=== PATIENT | female | born 1990 | race Caucasian/White ===

== ENCOUNTER 2016-11-21 04:10 | Inpatient (IN) | payer MEDICAID ==
[~2016-11-21] VITALS: Ht 167.6 cm; Wt 111.8 kg
[2016-11-23 10:42] VITALS: BP 136/70
[2016-11-23] MEDS ORDERED: OXYTOCIN 30U/ 0.9% NaCL 500ML 500 ML IV ONE (11:30)
[2016-11-23] MEDS ORDERED: ONDANSETRON 2MG/ML, 2ML IVPush PRN (11:30)
[2016-11-23] MEDS ORDERED: FENTANYL PF 100 MCG/2ML IVPush PRN (11:30)
[2016-11-23] MEDS ORDERED: IBUPROFEN 200 MG TABLET PO PRN (11:30)
[2016-11-23] MEDS ORDERED: OXYcodone/APAP 5/325MG TABLET PO PRN ×2 (11:30)
[2016-11-23] MEDS ORDERED: MISOPROSTOL 200 MCG TABLET PR ONE (11:30)
[2016-11-23 12:18] LABS: HEMOGLOBIN 10.6 g/dL (11.7-16.4)
[2016-11-23] MEDS: LACTATED RINGERS 1,000 ML IV SCH ×2 (12:31→19:06)
[2016-11-23 12:32] LABS: ASPARTATE AMINO TRANSFERASE 18 U/L (15-37); BLOOD UREA NITROGEN 6 mg/dL (7-18)
[2016-11-23] MEDS ORDERED: OXYTOCIN 30U/ 0.9% NaCL 500ML 500 ML ONE (13:26)
[2016-11-23] MEDS: OXYTOCIN 30U/ 0.9% NaCL 500ML 500 ML IV PRN (13:36)
[2016-11-23] MEDS ORDERED: NEWBORN KIT ONE (14:08)
[2016-11-23] MEDS ORDERED: ACETAMINOPHEN 325 MG TABLET PO PRN (20:20)
[2016-11-23] MEDS ORDERED: ACETAMINOPHEN 325 MG TABLET ONE (20:22)
[2016-11-24] MEDS: LACTATED RINGERS 1,000 ML IV SCH ×2 (09:29→18:52)
[2016-11-24] MEDS ORDERED: BISACODYL 10 MG SUPP ONE (11:47)
[2016-11-24] MEDS ORDERED: BISACODYL 10 MG SUPP PR ONE (12:00)
[2016-11-24] MEDS ORDERED: OXYTOCIN 30U/ 0.9% NaCL 500ML 500 ML ONE (15:39)
[2016-11-24] MEDS: OXYTOCIN 30U/ 0.9% NaCL 500ML 500 ML IV PRN (15:42)
[2016-11-24] MEDS ORDERED: FENTANYL PF 100 MCG/2ML ONE ×2 (16:40→18:13)
[2016-11-24] MEDS: FENTANYL PF 100 MCG/2ML IV PRN ×2 (16:41→17:45)
[2016-11-24] MEDS ORDERED: D5%-LACTATED RINGERS 1,000 ML IV SCH (16:58)
[2016-11-24] MEDS ORDERED: FENTANYL/BUPIV./NS/PF 250 ML EPIDCONT ONE (18:14)
[2016-11-24] MEDS ORDERED: BUPIVACAINE 0.25% ONE (18:14)
[2016-11-25] MEDS ORDERED: FENTANYL/BUPIV./NS/PF 250 ML EPIDCONT SCH (00:06)
[2016-11-25] MEDS ORDERED: LACTATED RINGERS 1,000 ML IV SCH (00:06)
[2016-11-25] MEDS ORDERED: LACTATED RINGERS 1,000 ML IVBOLUS PRN (00:30)
[2016-11-25] MEDS ORDERED: LIDOCAINE 1%, 20ML ONE (00:32)
[2016-11-25] MEDS ORDERED: MISOPROSTOL 200 MCG TABLET ONE (00:32)
[2016-11-25] MEDS ORDERED: ACETAMINOPHEN 325 MG TABLET ONE (01:55)
[2016-11-25] MEDS ORDERED: ACETAMINOPHEN 325 MG TABLET PO PRN (02:00)
[2016-11-25] MEDS ORDERED: OXYTOCIN 30U/ 0.9% NaCL 500ML 0 ML ONE (05:25)
[2016-11-25] MEDS: LACTATED RINGERS 1,000 ML IV SCH ×5 (06:48→19:31)
[2016-11-25] MEDS ORDERED: SODIUM CITRATE/CITRIC ACID 30 ML UDC ONE (07:23)
[2016-11-25] MEDS ORDERED: METOCLOPRAMIDE 5 MG/ML, 2ML ONE ×2 (07:23→07:46)
[2016-11-25] MEDS ORDERED: OXYTOCIN 30U/ 0.9% NaCL 500ML 500 ML IV SCH (07:26)
[2016-11-25] MEDS ORDERED: SODIUM CITRATE/CITRIC ACID 30 ML UDC PO ONE (07:30)
[2016-11-25] MEDS ORDERED: LACTATED RINGERS 1,000 ML IVBOLUS ONE (07:30)
[2016-11-25] MEDS ORDERED: ACETAMINOPHEN 650 MG SUPP PR PRN (07:30)
[2016-11-25] MEDS ORDERED: METOCLOPRAMIDE 5 MG/ML, 2ML IV ONE (07:30)
[2016-11-25] MEDS ORDERED: ACETAMINOPHEN 650 MG SUPP ONE (07:33)
[2016-11-25] MEDS ORDERED: CEFAZOLIN 1,000 MG ONE (07:46)
[2016-11-25] MEDS ORDERED: ONDANSETRON 2MG/ML, 2ML ONE (07:46)
[2016-11-25] MEDS ORDERED: HYDROmorphone 2 MG/ML, 1ML ONE (08:14)
[2016-11-25] MEDS: OXYTOCIN 30U/ 0.9% NaCL 500ML 500 ML IV SCH ×2 (09:31→19:31)
[2016-11-25] MEDS: OXYTOCIN 30U/ 0.9% NaCL 500ML 500 ML IV PRN (09:32)
[2016-11-25] MEDS ORDERED: KETOROLAC 30 MG/1 ML ONE (09:52)
[2016-11-25] MEDS: KETOROLAC 30 MG/1 ML IV SCH ×3 (09:55→22:35)
[2016-11-25] MEDS ORDERED: MISOPROSTOL 200 MCG TABLET PR PRN (10:00)
[2016-11-25] MEDS ORDERED: ONDANSETRON 2MG/ML, 2ML IV PRN (10:00)
[2016-11-25] MEDS: PRENATAL VIT/IRON/FA 1 EACH TABLET PO SCH (10:00)
[2016-11-25] MEDS ORDERED: morphine SULFATE 10 MG/ML, 1ML IVPush PRN ×2 (10:00)
[2016-11-25] MEDS ORDERED: BISACODYL 10 MG SUPP PR PRN (10:00)
[2016-11-25] MEDS ORDERED: OXYcodone/APAP 5/325MG TABLET PO PRN (10:00)
[2016-11-25] MEDS ORDERED: SIMETHICONE 80 MG CHEW TAB PO PRN (10:00)
[2016-11-25] MEDS: CEFTRIAXONE PMX 1GM/50ML 50 ML IV SCH (10:01)
[2016-11-25] MEDS ORDERED: PREN1TAB60 PO (10:40)
[2016-11-25 12:22] VITALS: BP 120/74
[2016-11-25 12:48] VITALS: BP 119/78
[2016-11-25] MEDS: OXYcodone/APAP 5/325MG TABLET PO PRN ×2 (13:33→19:38)
[2016-11-25 15:30] VITALS: BP 128/72
[2016-11-25 19:30] VITALS: BP 120/69
[2016-11-25] MEDS: DOCUSATE 100 MG CAPSULE PO PRN (19:38)
[2016-11-25 22:35] LABS: HEMOGLOBIN 8.6 g/dL (11.7-16.4)
[2016-11-26 00:10] VITALS: BP 135/72
[2016-11-26] MEDS: LACTATED RINGERS 1,000 ML IV SCH ×5 (01:31→17:31)
[2016-11-26] MEDS: OXYcodone/APAP 5/325MG TABLET PO PRN ×3 (02:19→20:42)
[2016-11-26] MEDS: KETOROLAC 30 MG/1 ML IV SCH (04:12)
[2016-11-26] MEDS: OXYTOCIN 30U/ 0.9% NaCL 500ML 500 ML IV SCH ×2 (05:31→15:31)
[2016-11-26 07:25] VITALS: BP 142/86
[2016-11-26] MEDS: DOCUSATE 100 MG CAPSULE PO PRN ×2 (08:06→20:42)
[2016-11-26] MEDS: PRENATAL VIT/IRON/FA 1 EACH TABLET PO SCH (08:06)
[2016-11-26] MEDS: CEFTRIAXONE PMX 1GM/50ML 50 ML IV SCH (10:21)
[2016-11-26] MEDS: IBUPROFEN 600 MG TABLET PO PRN ×2 (12:44→20:42)
[2016-11-26 20:20] VITALS: BP 139/83
[2016-11-27] MEDS: OXYTOCIN 30U/ 0.9% NaCL 500ML 500 ML IV SCH (01:31)
[2016-11-27] MEDS: LACTATED RINGERS 1,000 ML IV SCH ×3 (01:31→09:31)
[2016-11-27] MEDS: PRENATAL VIT/IRON/FA 1 EACH TABLET PO SCH (08:11)
[2016-11-27] MEDS: OXYcodone/APAP 5/325MG TABLET PO PRN ×2 (08:11→13:09)
[2016-11-27] MEDS: DOCUSATE 100 MG CAPSULE PO PRN (08:11)
[2016-11-27] MEDS: IBUPROFEN 600 MG TABLET PO PRN (08:11)
[2016-11-27 08:15] VITALS: BP 143/82
[2016-11-27] MEDS ORDERED: IBUP-1222 PO (09:55)
[2016-11-27] MEDS ORDERED: OXYC-302 PO (09:56)
[2016-11-27] MEDS ORDERED: DOCU-30 PO (09:57)
[2016-11-27] MEDS ORDERED: FERR325T16 PO (10:00)
[2016-11-27] MEDS ORDERED: FERROUS GLUCONATE 324 MG TABLET PO SCH (17:00)
== END 2016-11-27 13:22 | disposition home or self-care (01) | DRG 765 ==
LOC: LDIP 11-23 10:26 → 2NW 11-25 11:01
PROVIDERS: ADMIT Obstetrics & Gynecology Maternal & Fetal Medicine; ATTEND Obstetrics & Gynecology Maternal & Fetal Medicine
PROC: 0T9B70Z Drainage of Bladder with Drainage Device, Via Natural or Artificial Opening (ICD-10-PCS; 2016-11-23)
PROC: 10D00Z1 Extraction of Products of Conception, Low, Open Approach (ICD-10-PCS; principal; 2016-11-25)
PROC: 00HU33Z Insertion of Infusion Device into Spinal Canal, Percutaneous Approach (ICD-10-PCS; 2016-11-25)
PROC: 3E0R3CZ (ICD-10-PCS; 2016-11-25)
DX: O13.4 Gestational [pregnancy-induced] hypertension without significant proteinuria, complicating childbirth (principal); O41.1230 Chorioamnionitis, third trimester, not applicable or unspecified; O99.354 Diseases of the nervous system complicating childbirth; O75.2 Pyrexia during labor, not elsewhere classified; O99.214 Obesity complicating childbirth; E66.9 Obesity, unspecified; O76 Abnormality in fetal heart rate and rhythm complicating labor and delivery; G43.909 Migraine, unspecified, not intractable, without status migrainosus; O32.4XX0 Maternal care for high head at term, not applicable or unspecified; O66.0 Obstructed labor due to shoulder dystocia; Z68.39 Body mass index [BMI] 39.0-39.9, adult; Z3A.40 40 weeks gestation of pregnancy; Z37.0 Single live birth
CPT/HCPCS: 36415; 80053; 81001; 82248; 82803; 84550; 85025; 86850; 86900; 87086; J0690; J0696; J1170; J1885; J2405; J3010; J2590; J2765; J7120; J7121

== ENCOUNTER 2016-12-26 16:00 | Inpatient (IN) | payer MEDICAID ==
[~2016-12-26] VITALS: Ht 170.2 cm; Wt 100.3 kg
[~2016-12-26 16:00] MED LIST: BUPIVACAINE/PF-EPI 0.25% 1:200K ONE; CEFOTETAN 1 GM ONE; DEXAMETHASONE 4 MG/ML, 1ML ONE; DOCU-30 PO; FERR325T16 PO; IBUP-1222 PO; METHYLERGONOVINE 0.2 MG/ML IM ONE; MISOPROSTOL 200 MCG TABLET ONE; ONDANSETRON 2MG/ML, 2ML ONE; OXYC-302 PO; OXYTOCIN 10 UNITS/ML, 1ML ONE; PREN1TAB60 PO; PROPOFOL 10 MG/ML, 20ML ONE; SILVER NITRATE STICK TP ONE; SUCCINYLCHOLINE 20 MG/ML, 10ML ONE
[2016-12-26] MEDS ORDERED: FENTANYL PF 250 MCG/5ML ONE (16:15)
[2016-12-26] MEDS ORDERED: MIDAZOLAM 1 MG/ML, 2ML ONE ×2 (16:15→19:49)
[2016-12-26] MEDS ORDERED: SCOPOLAMINE PATCH, 1.5MG PATCH.TD72 TD ONE (16:57)
[2016-12-26] MEDS ORDERED: CARBOPROST TROMETHAMINE 250 MCG/ML, 1ML IM ONE (17:12)
[2016-12-26] MEDS ORDERED: ACETAMINOPHEN 325 MG TABLET PO PRN ×3 (19:00→21:30)
[2016-12-26] MEDS ORDERED: EPHEDRINE 50 MG/ML, 1ML IVPush PRN (19:00)
[2016-12-26] MEDS ORDERED: HYDROmorphone 1 MG/ML, 1ML IV PRN (19:00)
[2016-12-26] MEDS ORDERED: MEPERIDINE/PF 25MG/0.5ML IVPush PRN (19:00)
[2016-12-26] MEDS ORDERED: METOPROLOL 1 MG/ML, 5ML IV PRN (19:00)
[2016-12-26] MEDS ORDERED: PROMETHAZINE 25 MG/ML, 1ML IV PRN (19:00)
[2016-12-26] MEDS ORDERED: ONDANSETRON 2MG/ML, 2ML IVPush PRN (19:00)
[2016-12-26] MEDS ORDERED: hydrALAzine 20 MG/ML, 1ML IV PRN (19:00)
[2016-12-26] MEDS ORDERED: OXYcodone 5 MG/5 ML ORAL.SOL UDC PO PRN (19:00)
[2016-12-26] MEDS ORDERED: METOCLOPRAMIDE 5 MG/ML, 2ML IV PRN (19:00)
[2016-12-26] MEDS ORDERED: MIDAZOLAM 1 MG/ML, 2ML IV PRN (19:00)
[2016-12-26] MEDS ORDERED: LABETALOL 5MG/ML, 20ML IV PRN (19:00)
[2016-12-26] MEDS ORDERED: PLEASE ENTER HEIGHT AND WEIGHT MC SCH (19:30)
[2016-12-26] MEDS ORDERED: FENTANYL PF 100 MCG/2ML ONE (19:49)
[2016-12-26] MEDS ORDERED: OXYcodone 5 MG/5 ML ORAL.SOL UDC ONE ×2 (19:50→20:00)
[2016-12-26] MEDS: FENTANYL PF 100 MCG/2ML IV PRN ×2 (19:57→20:05)
[2016-12-26] MEDS ORDERED: POLYETHYLENE GLYCOL 17 GM PACKET PO PRN (21:00)
[2016-12-26] MEDS ORDERED: OXYcodone/APAP 5/325MG TABLET PO PRN (21:00)
[2016-12-26] MEDS ORDERED: BISACODYL 10 MG SUPP PR PRN (21:00)
[2016-12-26] MEDS ORDERED: ZOLPIDEM 5MG TABLET PO PRN (21:00)
[2016-12-26] MEDS ORDERED: DOCUSATE 100 MG CAPSULE PO PRN (21:00)
[2016-12-26] MEDS ORDERED: HEPARIN wt. based STROKE protocol MC PRN (21:00)
[2016-12-26] MEDS ORDERED: ONDANSETRON 2MG/ML, 2ML IVP PRN (21:00)
[2016-12-26] MEDS ORDERED: MORPHINE SULFATE 4 MG/ML, 1ML IVPush PRN (21:00)
[2016-12-26] MEDS ORDERED: DO NOT GIVE XX PRN (21:00)
[2016-12-26] MEDS: SODIUM CHLORIDE FLUSH 10ML SYR IVF SCH (21:17)
[2016-12-26 21:28] VITALS: BP 134/68
[2016-12-26] MEDS ORDERED: HEPARIN 25,000 UNITS/500ML PMX 500 ML IV PRN (22:00)
[2016-12-26] MEDS ORDERED: OXYTOCIN 30U/ 0.9% NaCL 500ML 500 ML ONE (23:20)
[2016-12-26] MEDS ORDERED: MIDAZOLAM 1 MG/ML, 5ML ONE (23:53)
[2016-12-26] MEDS ORDERED: KETAMINE 10 MG/ML, 20ML ONE (23:53)
[2016-12-27] MEDS ORDERED: METHYLERGONOVINE 0.2 MG/ML IM ONE (00:35)
[2016-12-27] MEDS: AMPICILLIN/SULBACTAM 1,500 MG in SODIUM CHLORIDE 0.9% 50 ML IV SCH ×2 (02:45→09:05)
[2016-12-27 04:45] LABS: BLOOD UREA NITROGEN 6 mg/dL (7-18)
[2016-12-27 04:51] LABS: ASPARTATE AMINO TRANSFERASE 15 U/L (15-37)
[2016-12-27 05:32] VITALS: BP 106/51
[2016-12-27] MEDS: METHYLERGONOVINE 0.2MG TABLET PO SCH ×4 (05:50→20:43)
[2016-12-27] MEDS: PRENATAL VIT/IRON/FA 1 EACH TABLET PO SCH (09:05)
[2016-12-27] MEDS: SODIUM CHLORIDE FLUSH 10ML SYR IVF SCH ×2 (09:06→20:41)
[2016-12-28] VITALS (7 sets, daily range): BP systolic 91–115; BP diastolic 34–58
[2016-12-28] MEDS: METHYLERGONOVINE 0.2MG TABLET PO SCH ×4 (06:11→20:18)
[2016-12-28] MEDS ORDERED: HEPARIN 25,000 UNITS/500ML PMX 500 ML IV PRN (08:30)
[2016-12-28] MEDS ORDERED: HEPARIN 5,000 UNITS/ML, 1ML SQ ONE (08:30)
[2016-12-28] MEDS: PRENATAL VIT/IRON/FA 1 EACH TABLET PO SCH (08:36)
[2016-12-28] MEDS: SODIUM CHLORIDE FLUSH 10ML SYR IVF SCH ×2 (08:54→20:19)
[2016-12-28] MEDS ORDERED: WARFARIN 7.5 MG TABLET PO-COUM ONE (19:30)
[2016-12-29 04:00] VITALS: BP 141/66
[2016-12-29 05:20] LABS: BLOOD UREA NITROGEN 8 mg/dL (7-18)
[2016-12-29] MEDS: METHYLERGONOVINE 0.2MG TABLET PO SCH ×3 (06:12→15:50)
[2016-12-29] MEDS: SODIUM CHLORIDE FLUSH 10ML SYR IVF SCH (08:15)
[2016-12-29] MEDS: PRENATAL VIT/IRON/FA 1 EACH TABLET PO SCH (08:15)
[2016-12-29 09:52] VITALS: BP 123/77
[2016-12-29] MEDS ORDERED: ENOXAPARIN 100 MG/ML SQ SCH (10:00)
[2016-12-29 17:07] VITALS: BP 125/83
[2016-12-29] MEDS ORDERED: WARFARIN 7.5 MG TABLET PO-COUM SCH (18:00)
[2016-12-29] MEDS ORDERED: ENOX100S4 SQ (18:04)
[2016-12-29] MEDS ORDERED: WARF7.5T PO-COUM (18:04)
[2016-12-29] MEDS ORDERED: Methylergonovine Maleate PO (18:05)
== END 2016-12-29 18:39 | disposition home or self-care (01) | DRG 769 ==
LOC: OR 16:00 → CCU 20:52 → 4NOR 12-29 09:34
PROC: 0W3R7ZZ Control Bleeding in Genitourinary Tract, Via Natural or Artificial Opening (ICD-10-PCS; 2016-12-26)
PROC: 30233L1 Transfusion of Nonautologous Fresh Plasma into Peripheral Vein, Percutaneous Approach (ICD-10-PCS; 2016-12-26)
PROC: 30233N1 Transfusion of Nonautologous Red Blood Cells into Peripheral Vein, Percutaneous Approach (ICD-10-PCS; 2016-12-26)
PROC: 30233K1 Transfusion of Nonautologous Frozen Plasma into Peripheral Vein, Percutaneous Approach (ICD-10-PCS; 2016-12-26)
PROC: 10D18ZZ Extraction of Products of Conception, Retained, Via Natural or Artificial Opening Endoscopic (ICD-10-PCS; principal; 2016-12-26 15:45)
DX: O72.2 Delayed and secondary postpartum hemorrhage (principal); D68.9 Coagulation defect, unspecified; D62 Acute posthemorrhagic anemia; O99.13 Other diseases of the blood and blood-forming organs and certain disorders involving the immune mechanism complicating the puerperium; O34.219 Maternal care for unspecified type scar from previous cesarean delivery; Z79.01 Long term (current) use of anticoagulants; Z87.891 Personal history of nicotine dependence; Z86.711 Personal history of pulmonary embolism
CPT/HCPCS: 36415; 80048; 80053; 81003; 85014; 85018; 85025; 85384; 85520; 85610; 85730; 86850; 86900; 86923; 87081; 88304; 93970; J1100; J1644; J1650; J2250; J2405; J2704; J3010; J0295; J0330; J2210; J2590; P9016; P9017; S0074